=== PATIENT | male | born 1970 | race Caucasian/White ===

== ENCOUNTER 2016-08-15 02:48 | Emergency (ER) ==
[2016-08-15 03:03] VITALS: BP 150/93; TEMP 97.2; BMI 36.6
--- NOTE | 2016-08-15 03:41 | ED.PDOC ---
General ED Provider: Dr. BERRY COHEN-ER Chief Complaint: Sore Throat Stated Complaint: chelo got white spots in my mouth and my tongue--chelo been using my steroid inhjulaer more Time Seen by Physician: 02:55 Mode of Arrival: Walk-In Information Source: Patient, Family Exam Limitations: No limitations Primary Care Provider: ALLYSSA CAMPO Nursing and Triage Documentation Reviewed and Agree: Yes EENT Complaint Exam - Dental/Oral Complaint/Exam Mechanism of Injury: No known trauma Onset/Duration: 24hrs Symptoms Are: Still present Timing: Constant Initial Severity: Mild Current Severity: Mild Location: oral cavity Character: Reports: Dull Aggravating: Reports: None Alleviating: Reports: None Associated Signs and Symptoms: Denies: Swelling, Discharge, Fever, Foul odor, Foul taste in mouth Cardiac Risk Factors: Reports: Diabetes Tooth Findings: Present: Normal findings Cervical Lymphadenopathy Present: No Facial Swelling Present: No Bleeding Present: No Septal Hematoma: No Foreign Body Present: No Dysphagia Present: No Drooling Present: No Asymmetrical Tonsillar Swelling Present: No Uvula Midline: Yes Mildred-tonsillar Fluctuence: No Trismus Present: No Palatal Petechiae Present: No Scarlatinaform Rash Present: No Differential Diagnoses: Thrush Review of Systems - Review Of Systems Constitutional: Reports: No symptoms Eyes: Reports: No symptoms Ears, Nose, Mouth, Throat: Reports: Mouth pain Respiratory: Reports: No symptoms Cardiac: Reports: No symptoms GI: Reports: No symptoms : Reports: No symptoms Musculoskeletal: Reports: No symptoms Skin: Reports: No symptoms Neurological: Reports: No symptoms Endocrine: Reports: No symptoms Hematologic/Lymphatic: Reports: No symptoms All Other Systems: Reviewed and Negative Past Medical History - Past Medical History Endocrine: Reports: DM 2, Dyslipidemia Cardiovascular: Reports: Hypertension Respiratory: Reports: COPD Hematological: Reports: None Gastrointestinal: Reports: None Genitourinary: Reports: None Neuro/Psych: Reports: None Musculoskeletal: Reports: Unknown Cancer: Reports: None - Surgical History General Surgical History: Reports: Unknown - Family History Family History: Reports: Unknown - Social History Smoking Status: Current every day smoker Hx Substance Use: No Alcohol Screening: None Lives: With family - Immunizations Tetanus Shot up to Date: No (unknown last date) Physical Exam - Physical Exam Appearance: Well-appearing, No pain distress, Well-nourished Eyes: SAM, EOMI, Conjunctiva clear ENT: Erythema Neck: Supple Respiratory: Airway patent, Breath sounds clear, Breath sounds equal, Respirations nonlabored Cardiovascular: RRR GI/: Soft Musculoskeletal: Normal strength, ROM intact, No edema, No calf tenderness Skin: Warm, Dry, Normal color Neurological: Sensation intact, Motor intact, Reflexes intact, Cranial nerves intact, Alert, Oriented Psychiatric: Affect appropriate, Mood appropriate Critical Care Note - Critical Care Note Total Time (mins): 0 Course - Course Orders, Labs, Meds: Orders Category Date Time Status MOLECULAR GROUP A STREP Stat LAB 08/15/16 03:15 Results RAPID STREP SCREEN [STREP SCREEN] Stat LAB 08/15/16 03:15 Results Vital Signs: Temp Pulse Resp BP Pulse Ox 08/15/16 02:51 97.2 F L 95 H 20 150/93 H 93 L Departure - Departure Time of Disposition: 03:40 Disposition: HOME SELF-CARE Discharge Problem: Candidiasis of mouth Instructions: Oral Candidiasis (ED) Condition: Good Pt referred to PMD for follow-up: Yes Additional Instructions: nystatin swish and spit 5 cc qid--recfheck in 48hrs if not improving Allergies/Adverse Reactions: Allergies codeine Adverse Reaction (Verified 08/15/16 03:03) Home Medications: Ambulatory Orders Budesonide/Formoterol Fumarate [Symbicort 160-4.5 Mcg Inhaler] 10.2 gm IH 1-2XD 09/24/14 Ipratropium [place] [Atrovent Hfa] 1 - 2 puff INH Q6H 12/17/14 Omeprazole Magnesium [Prilosec Otc] 20 mg PO BID 08/15/16 Disposition Discussed With: Patient, Family
== END 2016-08-15 03:46 | disposition home or self-care (01) ==
LOC: ED 02:48
DX: B37.0 Candidal stomatitis (principal); F17.210 Nicotine dependence, cigarettes, uncomplicated
CPT/HCPCS: 87651; 87880; 99283

== ENCOUNTER 2016-12-14 10:37 | Outpatient (CLI) ==
--- NOTE | 2016-12-14 11:18 | DI ---
EXAM: Lumbar spine five views HISTORY: Low back pain COMPARISON: None TECHNIQUE: Five views lumbar spine were performed including oblique views FINDINGS: Sacroiliac joints intact. Sacral arcuate lines intact. Transitional vertebral anatomy a t the lumbosacral junction with partial lumbarization of what will be referred to as S1. Mild inter vertebral disc space narrowing L4-L5 and L5-S1. Multilevel facet arthrosis. Marginal osteophyte fo rmation. Atherosclerotic vascular calcification. IMPRESSION: Chronic discogenic degenerative disease and facet arthrosis.
== END 2016-12-14 10:38 | disposition home or self-care (01) ==
LOC: RAD 10:37
PROVIDERS: ATTEND Physician Assistant
DX: M54.5 Low back pain (principal)

== ENCOUNTER 2016-12-20 12:47 | Outpatient (CLI) ==
--- NOTE | 2016-12-20 15:12 | MRI ---
EXAM: MRI lumbar spine without IV contrast. DATE: December 2016. HISTORY: Low back pain. TECHNIQUE: Sagittal and axial T1W and T2W sequences of the lumbar spine along with sagittal IR and coronal T2W sequences were obtained using 1.2 [place] magnet. No IV contrast. COMPARISON: LS spine series 14 Dec 2016. MRI lumbar spine 12/30/2010. PA/lateral chest January 7. CT L-spine 12/22/2010. FINDINGS: There are four classic [id number] lumbar vertebra (L2 through L4). At the thoracolu mbar junction, there is a vertebra with hypoplastic ribs. Previous chest x-rays demonstrate 12 clas sic rib bearing thoracic vertebra followed by this transitional vertebra. For the purposes of this d ictation, this transitional vertebra is referred to as L1. At the lumbosacral junction, there is a t ransitional vertebra with pseudoarticulation of the left S1 and S2 sacral ala. This suggests partia l lumbarization of S1. This numbering system is the same used for CT L-spine 12/22/2010 and plain fi lms 14 Dec 2016. There is no lumbar scoliosis. No acute lumbar fracture, subluxation, osseous malignancy, or pars in terarticularis defect is detected. Lumbar vertebra are normal in height. Bone marrow signal is ove rall normal. Chronic, small Schmorl's nodes are identified in multiple lower thoracic and lumbar ve rtebra. Disc desiccation and minor disc space narrowing are seen at L4-5. Prominent anterior osteo phytes, minor degenerative endplate changes, and moderate disc space narrowing are present at L5-S1. No sacral fracture or stress reaction is apparent. SI joints reveal no acute sacroiliitis. There is questionable minor ankylosis of the posterior aspect of the right SI joint. Conus medullaris ter minates at L1-2. Visible spinal cord is normal. . No retroperitoneal lymphadenopathy, paraspinal mass, or aortic aneurysm is detected. Paraspinal mus culature is symmetric bilaterally. Visible portions of the liver, spleen, adrenal glands and left k idney reveal no definitive neoplasm. A partially visualized T2W bright focus in the right kidney low er pole is likely a benign cyst, but not well visualized or fully characterized. Segmental analysis: T12-L1: Normal. L1-2: Normal L2-3: Tiny posterior disc bulge does not cause central stenosis or foraminal stenosis. L3-4: Minimal posterior disc bulge does not cause central stenosis or foraminal stenosis. L4-5: Small concentric disc bulge and mild facet arthropathy cause triangulation of the canal and m inimal bilateral inferior foraminal encroachment. L5-S1: Posterior spondylotic ridges at L5 and S1, small concentric disc bulge, and minor facet arth ropathy cause mild central canal stenosis and minor/mild bilateral foraminal stenoses. S1-2: Partial lumbarization of S1. No disc protrusion, central stenosis or foraminal stenosis. IMPRESSIONS: 1. Four classic lumbar vertebra. Transitional L1 and S1 vertebra. 2. 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 Mild central stenosis at L5-S1. 3. Lower lumbar foraminal stenoses (minor/mild). 4. T-L-spine small, chronic Schmorl's nodes. 5. Right kidney probable benign cortical cyst.
== END 2016-12-20 12:48 | disposition home or self-care (01) ==
LOC: RAD 12:47
PROVIDERS: ATTEND Physician Assistant
DX: M54.5 Low back pain (principal)

== ENCOUNTER 2018-06-24 13:43 | Emergency (ER) | payer MEDICAID, OTHER ==
[2018-06-24 13:47] VITALS: BP 112/78; TEMP 98.2; BMI 34.5
--- NOTE | 2018-06-24 13:50 | ED.PDOC ---
General ED Provider: Dr. JOSELINE DEWITT Chief Complaint: Back Pain Stated Complaint: Started having bilateral lower back pain for one week then starting last night had severe Right flank pain. Denies any burning on urination. Time Seen by Physician: 13:50 Mode of Arrival: Walk-In Information Source: Patient Exam Limitations: No limitations Primary Care Provider: JYOTI GOMES Nursing and Triage Documentation Reviewed and Agree: Yes Does patient meet sepsis criteria?: No System Inflammatory Response Syndrome: Not Applicable Sepsis Protocol: For patient's 13 years and over: Temp is 96.8 and below OR 101 and greater Pulse >90 BPM Resp >20/minute Acutely Altered Mental Status Are patient's symptoms suggestive of a new infection, such as: -Pneumonia -Skin, Soft Tissue -Endocarditis -UTI -Bone, Joint Infection -Implantable Device -Acute Abdominal Infection -Wound Infection -Meningitis -Blood Stream Catheter Infection -Unknown Review of Systems - Review Of Systems Constitutional: Reports: No symptoms Eyes: Reports: No symptoms Ears, Nose, Mouth, Throat: Reports: No symptoms Respiratory: Reports: No symptoms Cardiac: Reports: No symptoms GI: Reports: No symptoms : Reports: Flank pain (right ) Musculoskeletal: Reports: Back pain (lower ) Skin: Reports: No symptoms Neurological: Reports: No symptoms Endocrine: Reports: No symptoms Hematologic/Lymphatic: Reports: No symptoms All Other Systems: Reviewed and Negative Past Medical History - Past Medical History Previously Healthy: No Endocrine: Reports: DM 2, Dyslipidemia Cardiovascular: Reports: Hypertension Respiratory: Reports: COPD Hematological: Reports: None Gastrointestinal: Reports: None Genitourinary: Reports: None Neuro/Psych: Reports: None Musculoskeletal: Reports: Unknown Cancer: Reports: None - Surgical History General Surgical History: Reports: Unknown - Family History Family History: Reports: Unknown - Social History Smoking Status: Current every day smoker Hx Substance Use: No Alcohol Screening: None Physical Exam - Physical Exam Appearance: Ill-appearing, Obese Ill-appearing: Mild Pain Distress: Moderate Eyes: SAM, EOMI, Conjunctiva clear ENT: Oropharynx normal Neck: Supple Respiratory: Airway patent, Breath sounds clear, Breath sounds equal, Respirations nonlabored Cardiovascular: RRR, Pulses normal, No rub, No murmur GI/: Soft, Nontender, No masses, Bowel sounds normal, No Organomegaly Musculoskeletal: Limited ROM Skin: Warm, Dry, Normal color Neurological: Sensation intact, Motor intact, Reflexes intact, Cranial nerves intact, Alert, Oriented Psychiatric: Anxious Critical Care Note - Critical Care Note Total Time (mins): 0 Course - Course Hematology/Chemistry: 06/24/18 14:00 Orders, Labs, Meds: Lab Review 06/24/18 06/24/18 13:55 14:00 WBC 9.89 RBC 5.77 Hgb 16.7 Hct 49.0 MCV 84.9 MCH 28.9 MCHC 34.1 RDW Coeff of Shar 12.8 Plt Count 244 Immature Gran % (Auto) 0.3 Neut % (Auto) 64.6 Lymph % (Auto) 23.9 [place] % (Auto) 8.7 Eos % (Auto) 1.8 Baso % (Auto) 0.7 Immature Gran # (Auto) 0.0 Neut # (Auto) 6.4 Lymph # (Auto) 2.4 [place] # (Auto) 0.9 Eos # (Auto) 0.2 Baso # (Auto) 0.1 Urine Color Dark Urine Clarity Clear Urine pH 5.5 Ur Specific [place] 1.025 Urine Protein Negative Urine Glucose (UA) 3+ H Urine Ketones 1+ Urine Blood Negative Urine Nitrite Negative Urine Bilirubin Negative Urine Urobilinogen 0.2 Ur Leukocyte Esterase Negative Orders Category Date Time Status CBC W/ AUTO DIFF Stat LAB 06/24/18 14:00 Completed URINALYSIS C & S IF INDICATED Stat LAB 06/24/18 13:55 Completed Ketorolac Tromethamine [Toradol] MEDS 06/24/18 14:09 Discontinued 60 mg IM ONCE STA CT ABD/PEL WO RENAL STONE PROT Stat RADS 06/24/18 13:51 Completed Medications Discontinued Medications Generic Name Dose Route Start Last Admin Trade Name Sun PRN Reason Stop Dose Admin Ketorolac Tromethamine 60 mg 06/24/18 14:09 06/24/18 14:19 Toradol IM 06/24/18 14:10 60 mg ONCE STA Administration Vital Signs: Temp Pulse Resp BP Pulse Ox 06/24/18 13:43 98.2 F 102 H 20 112/78 95 Departure - Departure Time of Disposition: 14:23 Disposition: HOME SELF-CARE Discharge Problem: Backache Instructions: Back Pain (ED) Condition: Stable Pt referred to PMD for follow-up: Yes IPMP verified?: No Additional Instructions: Take medications as prescribed Follow up with PCP in 3 days Prescriptions: Ibuprofen [Motrin] 600 mg PO Q6H PRN #30 tablet PRN Reason: Analgesia Tramadol HCl [Ultram] 50 mg PO Q6H PRN #14 tablet PRN Reason: Severe Pain Allergies/Adverse Reactions: Allergies codeine Adverse Reaction (Verified 06/24/18 13:47) Vomiting Home Medications: Ambulatory Orders Budesonide/Formoterol Fumarate [Symbicort 160-4.5 Mcg Inhaler] 10.2 gm IH 1-2XD 09/24/14 Ipratropium [place] [Atrovent Hfa] 1 - 2 puff INH Q6H 12/17/14 Omeprazole Magnesium [Prilosec Otc] 20 mg PO BID 08/15/16 Ibuprofen [Motrin] 600 mg PO Q6H PRN #30 tablet 06/24/18 Linagliptin [Tradjenta] 5 mg PO DAILY 06/24/18 Tramadol HCl [Ultram] 50 mg PO Q6H PRN #14 tablet 06/24/18
[2018-06-24] MEDS ORDERED: TORADOL IVP STA (13:51)
[2018-06-24] MEDS ORDERED: TORADOL IM STA (14:09)
--- NOTE | 2018-06-24 14:16 | CT ---
EXAM: CT scan of the abdomen and pelvis without contrast HISTORY: Right flank pain TECHNIQUE: Helical imaging of the abdomen and pelvis was performed without contrast. 3 mm thin axia l images and coronal and sagittal reconstructions were provided for interpretation. Comparison none. FINDINGS: The liver, spleen, pancreas, adrenal glands and kidneys appear normal. The proximal urete rs are normal size. The small and large bowel loops are normal caliber. The appendix appears normal . The helical images obtained through the pelvis demonstrate a normal appearance of the rectum, urinary bladder. There is no free fluid seen within the pelvis. No retroperitoneal abnormalities are seen. There is no free air. No acute abnormalities are seen within the anterior abdominal wall. Lung ba ses are clear. No lytic or blastic lesions are seen within the osseous structures. IMPRESSION: There is no ureteral obstruction. There is no bowel obstruction or acute inflammatory change seen within the abdomen and pelvis.
== END 2018-06-24 14:44 | disposition home or self-care (01) ==
LOC: ED 13:43
DX: M54.5 Low back pain (principal); R10.9 Unspecified abdominal pain; E11.9 Type 2 diabetes mellitus without complications; E78.5 Hyperlipidemia, unspecified; I10 Essential (primary) hypertension; F17.210 Nicotine dependence, cigarettes, uncomplicated; J44.9 Chronic obstructive pulmonary disease, unspecified; Z79.899 Other long term (current) drug therapy
CPT/HCPCS: 36415; 74176; 81001; 85025; 96372; 99283

== ENCOUNTER 2018-09-29 09:18 | Outpatient (CLI) ==
[2018-07-28 02:07] VITALS: BMI 33.9
== END 2018-09-29 09:19 | disposition home or self-care (01) ==
LOC: LAB 09:18
PROVIDERS: ATTEND Physician Assistant Medical
DX: R39.12 Poor urinary stream (principal); N52.9 Male erectile dysfunction, unspecified
CPT/HCPCS: 36415; 84403